=== PATIENT | female | born 1970 | race Caucasian/White ===

== ENCOUNTER 2018-08-04 14:22 | Outpatient (CLI) | payer OTHER ==
[2018-08-12 07:29] LABS: BASOPHILS % 0.6 % (0.0-1.5); NEUTROPHILS # 4.9 # k/uL (1.4-7.7); eGFR (Non-African) > 60
== END 2018-08-04 14:27 | disposition home or self-care (01) ==
LOC: LAB 14:22
PROVIDERS: ATTEND Nurse Practitioner Family
DX: R53.83 Other fatigue (principal); L65.9 Nonscarring hair loss, unspecified
CPT/HCPCS: 36415; 80053; 84443; 85025